=== PATIENT | female | born 2000 | race Caucasian/White ===

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

== ENCOUNTER → 2018-06-08 06:57 | Outpatient (CLI) | payer BC ==
[2017-10-05 15:30] VITALS: BMI 31.4
[~2018-06-08 06:57] MED LIST changes: +IBUPROFEN800 MG PO; +PERCOCET 7.5/321 TAB PO
[2018-06-08 08:03] LABS: ALBUMIN 3.8 g/dL (3.4-5.0); BILIRUBIN - DIRECT 0.06 mg/dL (0.00-0.30); BILIRUBIN - INDIRECT 0.48 mg/dL (0.00-1.00); BILIRUBIN - TOTAL 0.54 mg/dL (0.2-1.3); PROTEIN - SERUM 7.2 g/dL (6.4-8.2)
== END | disposition home or self-care (01) ==
LOC: D.US 06:57
PROVIDERS: Internal Medicine Gastroenterology
DX: K76.0 Fatty (change of) liver, not elsewhere classified (principal)

== ENCOUNTER 2018-06-30 08:52 | Day surgery (SDC) | payer BC ==
[~2018-06-30] VITALS: Ht 160 cm; Wt 82.3 kg
--- NOTE | ~2018-06-30 | OP ---
PATIENT NAME: KIKE HOWE MEDICAL RECORD: [id number] :98 LOCATION:[facility] ADMISSION DATE: SURGEON: BINU HUANG DO DATE OF OPERATION: 06/30/2018 PROCEDURE: Colonoscopy with biopsies. INDICATIONS FOR PROCEDURE: Diarrhea, abdominal pain. SCOPE: Olympus video pediatric colonoscope. MEDICATIONS: Propofol 450 mg IV per anesthesia. WITHDRAWAL TIME: 19 minutes. ESTIMATED BLOOD LOSS: Minimal. COMPLICATIONS: None. FINDINGS: Informed consent was given. The patient was made comfortable with the above medication. After reaching an adequate level of sedation by slow IV push, the patient was placed on her left side. A digital rectal examination was performed and it was normal. The endoscope was then advanced under direct visualization through the rectum to the cecum and the terminal ileum. The endoscope was slowly withdrawn and mucosa was carefully examined. Prep quality was excellent. There were no polyps visualized on today's examination. The only abnormal findings included rectal ulcers and colitis, which was nonspecific by appearance. The ulcers were superficial. This showed no bleeding stigmata. Some were linear while others were rounded. The colitis and ulcerations were limited to approximately 5 cm within the rectum itself. It did not extend any further proximal. Appearances could be consistent with ulcerative colitis. Multiple cold forceps biopsies were taken to submit for histology. The remainder of the mucosa within the colon and the visualized mucosa in the terminal ileum were normal. Multiple cold forceps biopsies were taken randomly throughout normal areas to rule out the presence of microscopic colitis based on the diarrhea. Retroflexion was performed in the rectum with a normal appearing rectal wall other than the ulcerations, which were previously mentioned. The endoscope was withdrawn from the patient. The patient tolerated the procedure well and there were no complications. IMPRESSION: 1. Colitis/rectal ulcerations. Appearances may be consistent with ulcerative colitis. 2. Otherwise, normal colonoscopy. Biopsies taken from colitis and normal mucosa. PLAN AND RECOMMENDATIONS: 1. Discharge home when recovery parameters are met. 2. Follow up biopsy specimen results. 3. Follow up in GI clinic in 1-2 weeks. 4. Continue current diet. 5. We will provide a prescription for dicyclomine 20 mg p.o. t.i.d. p.r.n. loose stools or abdominal pain and cramping while awaiting biopsies. 6. If biopsies are negative, we will consider Prometheus testing/IBD First Step panel. If biopsies are consistent with ulcerative colitis/inflammatory bowel OPERATIVE REPORT [id number] KIKE HOWE disease, I will likely start the patient on oral mesalamine/sulfasalazine therapy. 7. Recall colonoscopy will be dependent on diagnosis and biopsy results. TRANSINT:[id number] Voice Confirmation ID: [id number] DOCUMENT ID: [id number] BINU HUANG DO CC: [id number] DICTATION DATE: 06/30/18 1055 CLINICAL AUDIOLOGIST: 06/30/18 1230 [facility] 06/30/18 [address] [place] [address]
[2018-06-30 09:16] LABS: BASOPHILS 0.4 % (0-2); HEMOGLOBIN 15.1 g/dL (12-16); IMMATURE GRANULOCYTES 0.3 % (0-5); LYMPHOCYTES 34.7 % (15-50); MCH 31.1 pg (26.0-34.0); MCHC 35.1 g/dL (31.0-37.0); MCV 88.7 fL (80.0-100.0); MEAN PLATELET VOLUME 9.8 fL (7.4-10.4); NEUTROPHILS 58.6 % (40-80); RBC 4.85 10x6/uL (4.00-5.40); RDW 12.9 % (11.5-14.5); WBC 7.5 10x3/uL (4.8-10.8)
[2018-06-30 09:26] LABS: CALC OSMOLALITY 278 mosm/kg (275-300); CALCIUM 9.3 mg/dL (8.5-10.1); CARBON DIOXIDE 22.3 mmol/L (21.0-32.0); CHLORIDE - SERUM 106 mmol/L (98-107); CREATININE - SERUM 0.5 mg/dL (0.6-1.3); GLUCOSE 88 mg/dL (74-106); POTASSIUM - SERUM 4.2 mmol/L (3.5-5.1); SODIUM 141 mmol/L (136-145); UREA NITROGEN 9 mg/dL (7-18); eGFR NON AFRICAN AMERICAN > 90 mL/min (90-120)
[2018-06-30 09:34] LABS: PLATELET COUNT 223 10x3/uL (130-400)
[2018-06-30 09:51] LABS: HCG URINE NEGATIVE (NEGATIVE)
[2018-06-30 10:00] VITALS: BP 119/73; Ht 160 cm; Wt 82.3 kg
== END 2018-06-30 11:33 | disposition home or self-care (01) ==
LOC: D.OPS 08:52
PROVIDERS: Anesthesiology; Internal Medicine Gastroenterology
DX: K52.9 Noninfective gastroenteritis and colitis, unspecified (principal); K62.6 Ulcer of anus and rectum; R19.7 Diarrhea, unspecified; Z01.812 Encounter for preprocedural laboratory examination

== ENCOUNTER → 2018-07-05 10:43 | Outpatient (CLI) | payer BC ==
[2018-06-30 10:00] VITALS: BMI 32.1
[~2018-07-05 10:43] MED LIST changes: +BENTYL10 MG PO
== END | disposition home or self-care (01) ==
LOC: D.LAB 10:43
DX: R19.7 Diarrhea, unspecified (principal); R10.9 Unspecified abdominal pain

== ENCOUNTER 2018-07-12 10:16 | Day surgery (SDC) | payer BC ==
[~2018-07-12] VITALS: Ht 157.5 cm; Wt 84.1 kg
--- NOTE | ~2018-07-12 | OP ---
PATIENT NAME: KIKE HOWE MEDICAL RECORD: [id number] :98 LOCATION:[facility] ADMISSION DATE: SURGEON: BINU HUANG DO DATE OF OPERATION: 07/12/2018 PROCEDURE: EGD with biopsies. INDICATIONS FOR PROCEDURE: Gastroesophageal reflux disease, nausea, epigastric pain. SCOPE: Olympus video gastroscope. MEDICATIONS: Propofol 220 mg IV per anesthesia. ESTIMATED BLOOD LOSS: Minimal. COMPLICATIONS: None. FINDINGS AND DESCRIPTION OF PROCEDURE: Informed consent was given. The patient was made comfortable with the above medication. After reaching an adequate level of sedation by slow IV push, the patient was placed on her left side. The endoscope was advanced under direct visualization through the mouth to the second and third portion of the duodenum. The upper, middle, and lower thirds of the esophagus appeared normal. At the GE junction, there was evidence of LA class B reflux-induced esophagitis. There was a shallow superficial ulceration associated with this esophagitis. The endoscope was advanced beyond the GE junction into the stomach and retroflexed view of the cardia, which revealed a patulous GE junction. There was no hiatal hernia visualized. The fundus appeared normal. The endoscope was advanced down into the body of the stomach and antrum. In the body, there was a single benign-appearing fundic gland polyp, which was removed using cold forceps. The antrum and prepyloric regions were normal. Multiple cold forceps biopsies were taken to submit for histopathology and to rule out the presence of H. pylori. The endoscope was advanced beyond the pylorus into the duodenum. The entire examined duodenum appeared normal. The endoscope was then withdrawn from the patient. The patient tolerated the procedure well and there were no complications. IMPRESSION: 1. LA class B reflux-induced esophagitis with a single superficial linear ulceration associated with the esophagitis. 2. Patulous GE junction, which is likely allowing access of reflux. 3. A single benign-appearing gastric polyp, which was removed using cold forceps. PLAN AND RECOMMENDATIONS: 1. Discharge home when recovery parameters are met. 2. Follow up biopsy specimen results. 3. GERD diet and reflux precautions. 4. Omeprazole 40 mg daily times 8 weeks. After this course is completed, the patient may switch to an H2 mukesh for scheduled use or as needed or may remain on a low dose PPI if necessary. 5. If symptoms return after treatment of esophagitis and despite medical therapy, may consider surgical evaluation for antireflux procedure. TRANSINT:[id number] Voice Confirmation ID: [id number] DOCUMENT ID: [id number] OPERATIVE REPORT [id number] KIKE HOWE NATHAN A DO at 0835 CC: [id number] DICTATION DATE: 07/12/18 121 NEW ACCOUNT INTERVIEWER: 07/12/18 1249 [facility] 07/12/18 [address] [place] [address]
[~2018-07-12 10:16] MED LIST changes: -BENTYL10 MG PO
[2018-07-12 10:31] LABS: HEMOGLOBIN 14.2 g/dL (12-16); MCHC 34.6 g/dL (31.0-37.0); MCV 89.5 fL (80.0-100.0); RBC 4.58 10x6/uL (4.00-5.40); RDW 12.9 % (11.5-14.5); WBC 6.8 10x3/uL (4.8-10.8)
[2018-07-12 10:58] LABS: HCG SERUM NEGATIVE (NEGATIVE)
[2018-07-12] MEDS ORDERED: BENTYL10 MG PO (11:04)
[2018-07-12 11:16] VITALS: BP 117/70; Ht 157.5 cm; Wt 84.1 kg
== END 2018-07-12 13:12 | disposition home or self-care (01) ==
LOC: D.OPS 10:16
PROVIDERS: Anesthesiology
DX: K21.0 Gastro-esophageal reflux disease with esophagitis (principal); K22.10 Ulcer of esophagus without bleeding; D13.1 Benign neoplasm of stomach; Z01.812 Encounter for preprocedural laboratory examination

== ENCOUNTER 2018-08-30 09:44 | Day surgery (SDC) | payer BC ==
[~2018-08-30] VITALS: Ht 157.5 cm; Wt 81.8 kg
[~2018-08-30 09:44] MED LIST changes: +BENTYL10 MG PO
[2018-08-30 10:01] LABS: BASOPHILS 0.3 % (0-2); EOSINOPHILS 1.2 % (0-7); HEMATOCRIT 41.7 % (36.0-48.0); HEMOGLOBIN 14.6 g/dL (12-16); IMMATURE GRANULOCYTES 0.3 % (0-5); LYMPHOCYTES 35.2 % (15-50); MCH 30.9 pg (26.0-34.0); MCV 88.2 fL (80.0-100.0); MEAN PLATELET VOLUME 9.9 fL (7.4-10.4); MONOCYTES 3.9 % (2-11); NEUTROPHILS 59.1 % (40-80); PLATELET COUNT 197 10x3/uL (130-400); RBC 4.73 10x6/uL (4.00-5.40); RDW 12.8 % (11.5-14.5); WBC 7.3 10x3/uL (4.8-10.8)
[2018-08-30] MEDS ORDERED: OMEPRAZOLE40 MG PO (10:17)
[2018-08-30] MEDS ORDERED: ENTOCORT EC3 MG PO (10:18)
[2018-08-30 10:27] VITALS: BP 138/92; Ht 157.5 cm; Wt 81.8 kg
[2018-08-30 11:01] LABS: HCG URINE NEGATIVE (NEGATIVE)
--- NOTE | 2018-08-30 12:06 | NUR ---
1200-RECD FROM GI LAB. ALERT. VOLYNN IN TO REPORT FINDINGS TO PATIENT AND MOTHER. IV PATENT. DENIES NAUSEA. 1207-FULL LIQUIDS SERVED.
--- NOTE | 2018-08-30 12:47 | NUR ---
1231 IV DC'D. CATHETER INTACT. NO BLEEDING AT SITE AFTER HOLDING PRESSURE. BANDAID APPLIED.
--- NOTE | 2018-09-01 13:50 | OP ---
PATIENT NAME: KIKE HOWE MEDICAL RECORD: [id number] :98 LOCATION:[facility] ADMISSION DATE: SURGEON: BINU HUANG DO DATE OF OPERATION: 08/30/2018 ADDENDUM PLAN AND RECOMMENDATIONS: 1. Follow up in GI clinic in 5-6 weeks to review symptoms after completion of budesonide therapy for lower abdominal symptoms and to followup on symptoms after starting Protonix 40 mg daily for continued uncontrolled reflux despite being on ranitidine. Considerations moving forward will be dependent on symptomatology after completion of budesonide, but if she relapses or symptoms worsen after decreasing medication or stopping, we will consider low-dose mesalamine or sulfasalazine therapy. 2. If the patient's GERD and reflux symptoms are uncontrolled while being on PPI 40 mg daily dose and after making dietary changes, can consider referral to surgery to discuss options for antireflux procedures. TRANSINT:[id number] Voice Confirmation ID: [id number] DOCUMENT ID: [id number] BINU HUANG DO at 1350 CC: [id number] DICTATION DATE: 08/30/18 1222 A OPERATOR: 08/30/18 1904 [facility] 08/30/[address] [facility] [address] [place] [address]
--- NOTE | 2018-09-01 13:50 | OP ---
PATIENT NAME: KIKE HOWE MEDICAL RECORD: [id number] :98 LOCATION:[facility] ADMISSION DATE: SURGEON: BINU HUANG DO DATE OF OPERATION: 08/30/2018 PROCEDURE: EGD with biopsies. INDICATION FOR PROCEDURE: Gastric polyp reevaluation, which was an adenomatous polyp with low-grade dysplastic changes. That EGD was performed on 07/12/2018. SCOPE: Olympus video gastroscope. MEDICATIONS: Propofol 250 mg IV per anesthesia. ESTIMATED BLOOD LOSS: Minimal. COMPLICATIONS: None. FINDINGS: Informed consent was given. The patient was made comfortable with the above medication. After reaching an adequate level of sedation by slow IV push, the patient was placed on her left side. The endoscope was advanced under direct visualization through the mouth to the second portion of the duodenum. The upper, middle, and lower thirds of the esophagus appeared normal. At the GE junction, there was evidence of LA class C, reflux-induced esophagitis with a single superficial esophageal ulceration. There was no bleeding associated with this ulcer. The endoscope was advanced beyond the GE junction into the stomach and retroflexed to view the cardia, where a patulous GE junction with a small hiatal hernia was present. The fundus of the stomach appeared normal. In the proximal body of the stomach, there was a single gastric polyp, which appeared benign. It was removed using cold forceps. It will be submitted for histopathology. The endoscope was advanced throughout the body, antrum, and prepyloric regions of the stomach. There were no obvious polyp formations present. Random biopsies were taken of antrum and prepyloric region. The endoscope was advanced beyond the pylorus into the duodenum, where the bulb, first portion, and second portions of the duodenum appeared normal. The ampulla was visualized and it appeared normal. The endoscope was withdrawn from the patient. The patient tolerated the procedure well and there were no complications. IMPRESSION: 1. LA class C, reflux-induced esophagitis with a single esophageal ulcer at the GE junction. 2. Patulous esophagus with a small hiatal hernia. 3. Gastric polyp, removed using a cold forceps. 4. Otherwise, normal EGD. Random antral biopsies were obtained. PLAN AND RECOMMENDATIONS: 1. Discharge home when recovery parameters are met. 2. Follow up biopsy specimen results. 3. GERD diet and reflux precautions. 4. Continue current medications. 5. Can consider referral to surgery for antireflux procedure if this continues to be an issue for the patient. 6. Further recommendations will be given pending results of biopsy specimen. 7. The patient should have followup arranged in the GI clinic regarding her OPERATIVE REPORT [id number] KIKE HOWE lower abdominal symptoms, which is currently being treated with budesonide. TRANSINT:[id number] Voice Confirmation ID: [id number] DOCUMENT ID: [id number] BINU HUANG DO at 1350 CC: [id number] DICTATION DATE: 08/30/18 1141 TUNA PURSE SEINER: 08/30/18 1656 [facility] 08/30/18 [facility] [address] [place] [address]
== END 2018-08-30 12:44 | disposition home or self-care (01) ==
LOC: D.OPS 09:44
PROVIDERS: Anesthesiology; Internal Medicine Gastroenterology
DX: K21.0 Gastro-esophageal reflux disease with esophagitis (principal); K44.9 Diaphragmatic hernia without obstruction or gangrene; K31.7 Polyp of stomach and duodenum; Z01.812 Encounter for preprocedural laboratory examination

== ENCOUNTER → 2018-12-06 06:37 | Outpatient (CLI) | payer BC ==
[2018-08-30 10:27] VITALS: BMI 33.0
[~2018-12-06 06:37] MED LIST changes: +ENTOCORT EC3 MG PO; +OMEPRAZOLE40 MG PO
== END | disposition home or self-care (01) ==
LOC: D.US 06:37
PROVIDERS: ATTEND Internal Medicine Gastroenterology
DX: K76.0 Fatty (change of) liver, not elsewhere classified (principal)

== ENCOUNTER → 2019-06-03 08:31 | Outpatient (CLI) | payer BC ==
[2018-08-30 10:27] VITALS: BMI 33.0
[2019-06-03 09:39] LABS: BILIRUBIN - DIRECT 0.08 mg/dL (0.00-0.30); BILIRUBIN - INDIRECT 0.3 mg/dL (0.00-1.00); BILIRUBIN - TOTAL 0.38 mg/dL (0.2-1.3); PROTEIN - SERUM 7.6 g/dL (6.4-8.2)
== END ==
LOC: D.US 08:31
PROVIDERS: ATTEND Internal Medicine Gastroenterology
DX: K76.0 Fatty (change of) liver, not elsewhere classified (principal)

== ENCOUNTER 2019-07-04 11:15 | Day surgery (SDC) | payer BC ==
[~2019-07-04] VITALS: Ht 157.5 cm; Wt 84.5 kg
[2019-07-04 11:38] LABS: HEMATOCRIT 42.2 % (36.0-48.0); HEMOGLOBIN 14.8 g/dL (12-16); MCH 31.6 pg (26.0-34.0); MCHC 35.1 g/dL (31.0-37.0); MCV 90.2 fL (80.0-100.0); MEAN PLATELET VOLUME 9.7 fL (7.4-10.4); RBC 4.68 10x6/uL (4.00-5.40); WBC 8.8 10x3/uL (4.8-10.8)
[2019-07-04 12:06] LABS: HCG URINE NEGATIVE (NEGATIVE)
[2019-07-04 12:15] VITALS: BP 137/78; Ht 157.5 cm; Wt 84.5 kg
--- NOTE | 2019-07-04 13:42 | NUR ---
1325 IV DC'D. CATHETER TIP INTACT. NO BLEEDING AT SITE. BANDAID APPLIED.
--- NOTE | 2019-07-07 12:05 | OP ---
PATIENT NAME: KIKE HOWE MEDICAL RECORD: [id number] :98 LOCATION:[facility] ADMISSION DATE: SURGEON: BINU HUANG DO DATE OF OPERATION: 07/04/2019 PROCEDURE: Colonoscopy with biopsies. INDICATIONS FOR PROCEDURE: History of colitis. SCOPE: Olympus video pediatric colonoscope. MEDICATIONS: Propofol 500 mg IV per anesthesia. WITHDRAWAL TIME: 8 minutes. ESTIMATED BLOOD LOSS: Minimal. COMPLICATIONS: None. FINDINGS: Informed consent was given. The patient was made comfortable with the above medication. After reaching an adequate level of sedation by slow IV push, the patient was placed on her left side. A digital rectal examination was performed and was normal. The endoscope was then advanced under direct visualization through the rectum to the cecum and terminal ileum. The endoscope was slowly withdrawn and mucosa was carefully examined. The prep quality was good. There were no abnormalities visualized on today's examination. Retroflexion was performed in the rectum with a normal appearing rectal wall. The terminal ileum appeared normal and the entire colon appeared normal. Random cold forceps biopsies were taken from the colon itself as well as the rectum. The endoscope was withdrawn from the patient. The patient tolerated the procedure well and there were no complications. IMPRESSION: Normal colon to terminal ileum. Random biopsies pending. PLAN AND RECOMMENDATIONS: 1. Discharge home when recovery parameters are met. 2. Follow up biopsy specimen results. 3. High fiber diet. 4. Continue current medications. 5. Recall colonoscopy at age 48 for colon cancer screening purposes. 6. Follow up in GI clinic in 1-2 months. TRANSINT:[id number] Voice Confirmation ID: [id number] DOCUMENT ID: [id number] BINU HUANG DO at 1205 CC: [id number] DICTATION DATE: 07/04/19 1252 MANAGER CORPORATE: 07/04/19 1640 [facility] 07/04/19 [place] [address]
== END 2019-07-04 13:38 | disposition home or self-care (01) ==
LOC: D.OPS 11:15
PROVIDERS: Anesthesiology; ATTEND Internal Medicine Gastroenterology
DX: K52.839 Microscopic colitis, unspecified (principal); K21.9 Gastro-esophageal reflux disease without esophagitis; K62.6 Ulcer of anus and rectum

== ENCOUNTER → 2019-12-05 09:44 | Outpatient (CLI) | payer BC ==
[2019-07-04 12:15] VITALS: BMI 34.1
[2019-12-05 10:22] LABS: ALBUMIN 3.9 g/dL (3.4-5.0); BILIRUBIN - DIRECT 0.11 mg/dL (0.00-0.30); BILIRUBIN - INDIRECT 0.31 mg/dL (0.00-1.00); BILIRUBIN - TOTAL 0.42 mg/dL (0.2-1.3); PROTEIN - SERUM 7.2 g/dL (6.4-8.2)
== END | disposition home or self-care (01) ==
LOC: D.LAB 09:44 → D.US 10:00
PROVIDERS: ATTEND Internal Medicine Gastroenterology
DX: K76.0 Fatty (change of) liver, not elsewhere classified (principal)

== ENCOUNTER 2020-01-24 13:22 | Emergency (ER) | payer BC ==
[~2020-01-24] VITALS: Ht 157.5 cm; Wt 85.0 kg
[2020-01-24 13:30] VITALS: Ht 157.5 cm; Wt 85.0 kg
[2020-01-24] MEDS ORDERED: PRENAVITE1 TAB PO (13:31)
[2020-01-24 14:14] LABS: BASOPHILS 0.2 % (0-2); EOSINOPHILS 1.1 % (0-7); HEMATOCRIT 45.3 % (36.0-48.0); HEMOGLOBIN 15.3 g/dL (12-16); IMMATURE GRANULOCYTES 0.3 % (0-5); LYMPHOCYTES 25.4 % (15-50); MCH 30.8 pg (26.0-34.0); MCHC 33.8 g/dL (31.0-37.0); MCV 91.1 fL (80.0-100.0); MONOCYTES 3.3 % (2-11); NEUTROPHILS 69.7 % (40-80); PLATELET COUNT 219 10x3/uL (130-400); RBC 4.97 10x6/uL (4.00-5.40); RDW 12.9 % (11.5-14.5); WBC 8.8 10x3/uL (4.8-10.8)
[2020-01-24 14:22] LABS: HCG SERUM POSITIVE (NEGATIVE)
[2020-01-24 14:23] LABS: CALC OSMOLALITY 277 mosm/kg (275-300); CALCIUM 9.2 mg/dL (8.5-10.1); CARBON DIOXIDE 24.9 mmol/L (21.0-32.0); CHLORIDE - SERUM 105 mmol/L (98-107); CREATININE - SERUM 0.7 mg/dL (0.6-1.3); GLUCOSE 106 mg/dL (74-106); POTASSIUM - SERUM 3.3 mmol/L (3.5-5.1); SODIUM 140 mmol/L (136-145); UREA NITROGEN 11 mg/dL (7-18); eGFR NON AFRICAN AMERICAN > 90 mL/min (90-120)
[2020-01-24 14:29] LABS: ALBUMIN 4.3 g/dL (3.4-5.0); ALKALINE PHOSPHATASE 65 U/L (30-120); ALT (SGPT) 64 U/L (10-68); BILIRUBIN - TOTAL 0.63 mg/dL (0.2-1.3); PROTEIN - SERUM 7.9 g/dL (6.4-8.2)
[2020-01-24 14:47] LABS: BACTERIA MODERATE /hpf (NEGATIVE); BILIRUBIN NEGATIVE (NEGATIVE); EPITHELIAL CELLS 0-5 /hpf (0-5); GLUCOSE 250 mg/dL (NEGATIVE); KETONE NEGATIVE (NEGATIVE); NITRITE NEGATIVE (NEGATIVE); RED CELLS - URINE OCC /hpf (0-5); UROBILINOGEN NORMAL (NORMAL); WHITE CELLS - URINE NSEEN /hpf (NEGATIVE)
[2020-01-24 17:10] VITALS: BP 126/67
== END 2020-01-24 17:10 | disposition home or self-care (01) ==
LOC: D.ER 13:22
PROVIDERS: Family Medicine
DX: O20.9 Hemorrhage in early pregnancy, unspecified (principal); Z3A.08 8 weeks gestation of pregnancy; K21.9 Gastro-esophageal reflux disease without esophagitis

== ENCOUNTER 2020-01-29 15:35 | Emergency (ER) | payer BC ==
[~2020-01-29] VITALS: Ht 157.5 cm; Wt 83.6 kg
[~2020-01-29 15:35] MED LIST changes: +PRENAVITE1 TAB PO
[2020-01-29 15:40] VITALS: Ht 157.5 cm; Wt 83.6 kg
[2020-01-29 16:01] LABS: BILIRUBIN NEGATIVE (NEGATIVE); GLUCOSE NEGATIVE (NEGATIVE); KETONE NEGATIVE (NEGATIVE); NITRITE NEGATIVE (NEGATIVE); SPECIFIC GRAVITY 1.005 (1.005-1.020); UROBILINOGEN NORMAL (NORMAL)
[2020-01-29 16:05] LABS: BACTERIA FEW /hpf (NEGATIVE); EPITHELIAL CELLS 0-5 /hpf (0-5); RED CELLS - URINE 0-5 /hpf (0-5); WHITE CELLS - URINE NSEEN /hpf (NEGATIVE)
[2020-01-29 16:34] LABS: BASOPHILS 0.1 % (0-2); EOSINOPHILS 1.3 % (0-7); HEMOGLOBIN 14.3 g/dL (12-16); IMMATURE GRANULOCYTES 0.2 % (0-5); LYMPHOCYTES 31.3 % (15-50); MCH 30.8 pg (26.0-34.0); MCV 90.3 fL (80.0-100.0); MEAN PLATELET VOLUME 9.6 fL (7.4-10.4); MONOCYTES 4.7 % (2-11); NEUTROPHILS 62.4 % (40-80); PLATELET COUNT 240 10x3/uL (130-400); RBC 4.65 10x6/uL (4.00-5.40)
[2020-01-29 17:08] LABS: CALC OSMOLALITY 273 mosm/kg (275-300); CALCIUM 9.2 mg/dL (8.5-10.1); CARBON DIOXIDE 25.1 mmol/L (21.0-32.0); CHLORIDE - SERUM 105 mmol/L (98-107); CREATININE - SERUM 0.6 mg/dL (0.6-1.3); GLUCOSE 105 mg/dL (74-106); POTASSIUM - SERUM 4.1 mmol/L (3.5-5.1); SODIUM 138 mmol/L (136-145); UREA NITROGEN 8 mg/dL (7-18); eGFR NON AFRICAN AMERICAN > 90 mL/min (90-120)
[2020-01-29 17:34] LABS: ALBUMIN 4.5 g/dL (3.4-5.0); ALKALINE PHOSPHATASE 61 U/L (30-120); ALT (SGPT) 64 U/L (10-68); BILIRUBIN - TOTAL 0.63 mg/dL (0.2-1.3); HCG - QUANTITATIVE (MATERNAL) 2422 mIU/mL; PROTEIN - SERUM 7.3 g/dL (6.4-8.2)
[2020-01-29 21:53] VITALS: BP 128/89
== END 2020-01-29 21:47 | disposition home or self-care (01) ==
LOC: D.ER 15:35
PROVIDERS: Family Medicine
DX: O46.91 Antepartum hemorrhage, unspecified, first trimester (principal); Z3A.01 Less than 8 weeks gestation of pregnancy; K21.9 Gastro-esophageal reflux disease without esophagitis

== ENCOUNTER 2020-01-31 09:15 | Emergency (ER) | payer BC ==
[~2020-01-31] VITALS: Ht 157.5 cm; Wt 83.6 kg
[2020-01-31 09:19] VITALS: Ht 157.5 cm; Wt 83.6 kg
[2020-01-31 09:58] LABS: BASOPHILS 0.2 % (0-2); EOSINOPHILS 0.8 % (0-7); HEMATOCRIT 41.8 % (36.0-48.0); HEMOGLOBIN 14.3 g/dL (12-16); IMMATURE GRANULOCYTES 0.2 % (0-5); MCH 30.6 pg (26.0-34.0); MCHC 34.2 g/dL (31.0-37.0); MCV 89.5 fL (80.0-100.0); MONOCYTES 3.8 % (2-11); PLATELET COUNT 241 10x3/uL (130-400); RBC 4.67 10x6/uL (4.00-5.40); RDW 12.9 % (11.5-14.5)
[2020-01-31 09:59] LABS: WBC 13.2 10x3/uL (4.8-10.8)
[2020-01-31 10:03] LABS: HCG SERUM POSITIVE (NEGATIVE)
[2020-01-31 10:06] LABS: CALC OSMOLALITY 273 mosm/kg (275-300); CARBON DIOXIDE 21.6 mmol/L (21.0-32.0); CHLORIDE - SERUM 106 mmol/L (98-107); CREATININE - SERUM 0.6 mg/dL (0.6-1.3); GLUCOSE 95 mg/dL (74-106); SODIUM 138 mmol/L (136-145); UREA NITROGEN 8 mg/dL (7-18); eGFR NON AFRICAN AMERICAN > 90 mL/min (90-120)
[2020-01-31 10:19] LABS: BILIRUBIN NEGATIVE (NEGATIVE); GLUCOSE NEGATIVE (NEGATIVE); KETONE NEGATIVE (NEGATIVE); NITRITE NEGATIVE (NEGATIVE); UROBILINOGEN NORMAL (NORMAL); WHITE CELLS - URINE 0-5 /hpf (NEGATIVE)
[2020-01-31 10:20] LABS: BACTERIA NONE SEEN /hpf (NEGATIVE); EPITHELIAL CELLS NSEEN /hpf (0-5)
[2020-01-31 10:34] LABS: ALBUMIN 4.3 g/dL (3.4-5.0); ALKALINE PHOSPHATASE 58 U/L (30-120); ALT (SGPT) 48 U/L (10-68); BILIRUBIN - TOTAL 0.42 mg/dL (0.2-1.3); HCG - QUANTITATIVE (MATERNAL) 1624 mIU/mL; PROTEIN - SERUM 7.5 g/dL (6.4-8.2)
[2020-01-31 11:29] VITALS: BP 129/89
== END 2020-01-31 11:30 | disposition home or self-care (01) ==
LOC: D.ER 09:15
PROVIDERS: Family Medicine
DX: O03.9 Complete or unspecified spontaneous abortion without complication (principal)